=== PATIENT | female | born 1980 | race African-American/Black ===

== ENCOUNTER 2022-10-03 19:02 | Emergency (ER) | payer SELFPAY ==
[2022-10-03] MEDS ORDERED: Orphenadrine 60 MG/2 ML Inj IM ONE (19:39)
[2022-10-03] MEDS ORDERED: methylPREDNISolone Sodium Succinate 125 MG/2 ML SDV IM ONE (19:39)
== END 2022-10-03 19:50 | disposition home or self-care (01) ==
LOC: DL.ED 19:02
DX: M54.41 Lumbago with sciatica, right side (principal); M54.42 Lumbago with sciatica, left side
CPT/HCPCS: 96372; 99283; 99284; J2360; J2930